=== PATIENT | male | born 1960 | race Caucasian/White ===

== ENCOUNTER 2018-09-17 20:18 | Emergency (ER) | payer BC ==
[2018-09-17] MEDS ORDERED: IPRATROPIUM/ALBUTEROL 3 ML DEYVIAL IH ONE (21:43)
[2018-09-17] MEDS ORDERED: OSELTAMIVIR PHOSPHATE 75 MG CAP PO ONE (21:43)
--- NOTE | 2018-09-17 21:48 | EDPHY ---
H & P Stated Complaint: SOB and generalized body aches Time Seen by Provider: 09/17/18 21:23 HPI/ROS: CHIEF COMPLAINT: Dyspnea, cough, flu-like illness HISTORY OF PRESENT ILLNESS: The patient presents to the ED with several days of dyspnea, cough, fever and myalgias. Patient is visiting [place] from [place]. The patient was recently treated for chronic bronchitis with antibiotics. The patient had been feeling better however developed a flu-like symptoms over the past 24 hr. The patient does have a history of congestive heart failure and takes Lasix. He also has chronic pain is on narcotic medications. The patient also has a history of diabetes and hyperlipidemia. The patient denies any abdominal pain or vomiting. He denies any headache neck stiffness. He denies any acute numbness or weakness. REVIEW OF SYSTEMS: A comprehensive 10 point review of systems is otherwise negative aside from elements mentioned in the history of present illness. Source: Patient Exam Limitations: No limitations - Personal History Current Tetanus/Diphtheria Vaccine: Yes Current Tetanus Diphtheria and Acellular Pertussis (TDAP): Yes - Medical/Surgical History Hx Asthma: No Hx Chronic Respiratory Disease: No Hx Diabetes: Yes Hx Cardiac Disease: Yes Hx Renal Disease: No Hx Cirrhosis: No Hx Alcoholism: No Hx HIV/AIDS: No Hx Splenectomy or Spleen Trauma: No Other PMH: right knee surgery, left foot surgery , cholecystectomy, hernia, ablation, CHF, DM, thyriod cancer - Social History Smoking Status: Former smoker - Physical Exam Exam: General Appearance: Alert, no distress Eyes: Pupils equal and round no pallor or injection ENT, Mouth: Mucous membranes moist Respiratory: Scant expiratory wheezing Cardiovascular: Regular rate and rhythm Gastrointestinal: Abdomen is soft and nontender, no masses, bowel sounds normal Neurological: 5/5 strength noted all 4 extremities Skin: Warm and dry, no rashes Musculoskeletal: Neck is supple nontender, no meningeal symptoms Extremities: symmetrical, full range of motion, trace edema Psychiatric: Patient is oriented X 3, there is no agitation Constitutional: Initial Vital Signs Temperature (C) 36.9 C 09/17/18 20:20 Heart Rate 96 09/17/18 20:20 Respiratory Rate 16 09/17/18 20:20 Blood Pressure 172/80 H 09/17/18 20:20 O2 Sat (%) 93 09/17/18 20:20 O2 Delivery Mode Room Air Allergies/Adverse Reactions: garlic Allergy (Verified 09/17/18 20:25) Home Medications: Medication Instructions Recorded Albuterol [Ventolin Hfa Inhaler] 2 puffs IH QID PRN #1 mdi 09/17/18 Bumetanide 09/17/18 Insulin Admin. Supplies 09/17/18 Levothyroxine 09/17/18 Lipitor 09/17/18 Oseltamivir Phosphate [Tamiflu] 75 mg PO BID #10 cap 09/17/18 Potassium Chloride 09/17/18 Tricor 09/17/18 novoLOG 09/17/18 Medical Decision Making - Diagnostics Imaging Results: Imaging Impressions Chest X-Ray 09/17/18 20:28 Impression: Mild peribronchial thickening which can be seen with airways disease /bronchitis. ED Course/Re-evaluation: The patient presents to the ED with a 1 day history of a influenza like illness. The patient is nontoxic well-appearing upon arrival. He has had a history of chronic bronchitis and recently completed a course of antibiotics. The patient has no acute hypoxemia or vital sign abnormality. Chest x-ray demonstrates no evidence of an obvious pneumonia. Patient is noted to have scant expiratory wheezing on exam. Patient was treated with a DuoNeb in the emergency department. Clinically the patient has influenza. Given his history of diabetes and heart failure he will be started on Tamiflu. Patient is advised to return to the emergency department for any progressive respiratory symptoms. The patient will be discharged home with a prescription for albuterol and a complete 5 day course of Tamiflu. I re-evaluated the patient at 10:30 p.m. and he is in no acute respiratory distress. Differential Diagnosis: Differential diagnosis considered includes influenza, asthma, bronchitis, pneumonia, heart failure - Data Points Medications Given: Discontinued Medications Albuterol/Ipratropium (Duoneb) 3 ml IH EDNOW ONE Stop: 09/17/18 21:44 Last Admin: 09/17/18 21:58 Dose: 3 ml Oseltamivir Phosphate (Tamiflu) 75 mg PO EDNOW ONE Stop: 09/17/18 21:44 Last Admin: 09/17/18 21:58 Dose: 75 mg Departure - Departure Disposition: Home, Routine, Self-Care Clinical Impression: Acute bronchitis, Influenza Condition: Good Instructions: Acute Bronchitis (ED) Additional Instructions: 1. Please take Tamiflu as directed for next 5 days. 2. Use albuterol inhaler 2 puffs every 2-4 hours as needed for shortness of breath. 3. Take Ibuprofen or Motrin 600 mg by mouth three times a day. Tylenol 650 mg every 6 hr as needed. 4. Please return to the ED for markedly worsening respiratory symptoms or other concerns. 5. Please follow-up with your regular physician for a recheck within the next week. Prescriptions: Albuterol [Ventolin Hfa Inhaler] 2 puffs IH QID PRN #1 mdi PRN Reason: for shortness of breath Oseltamivir Phosphate [Tamiflu] 75 mg PO BID #10 cap
[2018-09-17] MEDS ORDERED: ALBUTEROL INH PREPACK MDI TAKEHOME ONE (22:09)
[2018-09-17 23:03] VITALS: BP 119/62
== END 2018-09-17 23:00 | disposition home or self-care (01) ==
DX: J40 Bronchitis, not specified as acute or chronic (principal); J11.1 Influenza due to unidentified influenza virus with other respiratory manifestations; I25.10 Atherosclerotic heart disease of native coronary artery without angina pectoris; E78.5 Hyperlipidemia, unspecified; E11.9 Type 2 diabetes mellitus without complications; Z79.4 Long term (current) use of insulin; Z79.899 Other long term (current) drug therapy